=== PATIENT | male | born 1965 | race Caucasian/White ===

== ENCOUNTER 2017-10-19 17:14 | Inpatient (IN) | payer OTHER ==
[~2017-10-19] VITALS: Ht 177.8 cm; Wt 117.9 kg
[2017-10-19 17:15] VITALS: BP 220/145
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
[2017-10-19 18:08] LABS: BASOPHILS # (AUTO) 0.2 K/uL (0.00-0.22); EOSINOPHILS # (AUTO) 0.2 K/uL (0-0.4); HEMATOCRIT 49.4 % (36-52); HEMOGLOBIN 17.1 g/dL (12.0-18.0); LYMPHOCYTES # (AUTO) 1.4 K/uL (2.0-11.5); MEAN CORPUSCULAR HEMOGLOBIN 29 pg (27-31); MEAN CORPUSCULAR HGB CONC 35 g/dL (33-37); MEAN CORPUSCULAR VOLUME 84 fL (80-94); MONOCYTES # (AUTO) 0.7 K/uL (0.8-1.0); NEUTROPHILS # (AUTO) 4.7 K/uL (1.8-7.7); PLATELET COUNT (AUTO) 270 K/uL (140-450); RED CELL DISTRIBUTION WIDTH 12.8 % (11.6-13.7); WHITE BLOOD COUNT (AUTO) 7.2 K/uL (4.8-10.8)
[2017-10-19 18:21] LABS: UREA NITROGEN, BLOOD 12 mg/dL (7-18)
[2017-10-19 18:31] LABS: ALBUMIN 3.9 g/dL (3.4-5.0); ANION GAP 12.8 (8-16); ASPARTATE AMINOTRANSFERASE 19 U/L (15-37); CARBON DIOXIDE 29.3 mmol/L (21-32); CHLORIDE 103 mmol/L (98-107); CREATININE 1.1 mg/dL (0.7-1.3); GFR ARICAN-AMERICAN 92 mL/min (>90); GLUCOSE 116 mg/dL (74-106); POTASSIUM 3.1 mmol/L (3.5-5.1); SALICYLATE < 2.8 mg/dL (2.8-20.0); SODIUM SERUM 142 mmol/L (136-145); TOTAL BILIRUBIN 1.4 mg/dL (0.0-1.0)
[2017-10-19 18:32] LABS: ACETAMINOPHEN < 0.5 ug/ml (10-30)
--- NOTE | 2017-10-19 18:34 | NUR ---
CRECHECKED BP 3 X ;OBTAINE 173/113;ERMD NOTIFIED;WILL PRESCRIBE ENALAPRIL;WILL CONTINUE TO MONITOR PT.
[2017-10-19] MEDS ORDERED: ENALAPRIL 5 MG TAB PO ONE (18:35)
[2017-10-19 18:51] LABS: APPEARANCE,URINE CLEAR (CLEAR); BILIRUBIN,URINE NEGATIVE (NEGATIVE); BLOOD, URINE NEGATIVE (NEGATIVE); COLOR,URINE YELLOW (YELLOW); LEUKOCYTE ESTERASE ,URINE NEGATIVE (NEGATIVE); NITRITE, URINE NEGATIVE (NEGATIVE); PH,URINE 6.5 (5.0-9.0); UGLUCOSE NEGATIVE (NEGATIVE)
[2017-10-19 18:54] LABS: RBC,URINE 0-5 (RARE) /HPF (0-5); WBC,URINE 0-5 (RARE) /HPF (0-5)
[2017-10-19 19:04] LABS: BARBITURATE, URINE NEG. ng/ml (NEG <=200); BENZODIAZEPINE, URINE NEG. ng/mL (NEG <=200); CANNABINOID, URINE NEG. ng/mL (NEG <=50); COCAINE, URINE NEG. ng/mL (NEG <=300); OPIATE, URINE NEG. ng/mL (NEG <=2000); PHENCYCLIDINE SCREEN,URINE NEG. ng/mL (NEG <=25)
--- NOTE | 2017-10-19 19:10 | NUR ---
REPORT RECEIVED FROM SAURAV LONG
[2017-10-19] MEDS ORDERED: POTASSIUM CHLORIDE 20% 40 MEQ/15 ML UDC PO ONE (19:50)
--- NOTE | 2017-10-19 20:45 | NUR ---
AT BEDSIDE, INTERACTING WITH PATIENT APPROPRIATELY.
--- NOTE | 2017-10-19 21:15 | NUR ---
PT EATING DINNER.
--- NOTE | 2017-10-19 22:35 | NUR ---
Patient appears to be resting comfortably in bed. Vital Signs within normal limits. Respirations even and unlabored.
--- NOTE | 2017-10-19 23:30 | NUR ---
PT SLEEPING. NO ACUTE DISTRESS NOTED AT THIS TIME.
--- NOTE | 2017-10-20 01:03 | NUR ---
Patient appears to be resting comfortably in bed. Vital Signs within normal limits. Respirations even and unlabored.
[2017-10-20] MEDS ORDERED: cloNIDine 0.1 MG TAB PO ONE (01:55)
[2017-10-20] MEDS ORDERED: HYDROcodone/APAP 5/325 MG 1 TAB TAB PO ONE (02:00)
[2017-10-20] MEDS ORDERED: ONDANSETRON 4 MG/2 ML VIAL IVP ONE (02:00)
[2017-10-20] MEDS ORDERED: ACETAMINOPHEN 325 MG TAB PO ONE (02:00)
[2017-10-20] MEDS ORDERED: LORazepam 1 MG TAB PO ONE (02:00)
--- NOTE | 2017-10-20 02:33 | NUR ---
Patient will be admitted to care of DR LEMOS. Admited to TELE. Will go to room 112B. Belongings list completed. Report to SAURAV MCGRATH.
[2017-10-20 02:35] VITALS: BP 164/100
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
[2017-10-20] MEDS ORDERED: HYDROcodone/APAP 5/325 MG 1 TAB TAB PO PRN (03:00)
[2017-10-20] MEDS ORDERED: ACETAMINOPHEN 325 MG TAB PO PRN (03:00)
[2017-10-20] MEDS ORDERED: LORazepam 1 MG TAB PO PRN (03:00)
[2017-10-20] MEDS ORDERED: ONDANSETRON 4 MG/2 ML VIAL IVP PRN (03:00)
[2017-10-20] MEDS: cloNIDine 0.1 MG TAB PO PRN ×2 (03:31→12:14)
--- NOTE | 2017-10-20 03:31 | NUR ---
BLOOD PRESSURE 164/100, ADMINISTERED CATAPRES 0.1MG PO WITH EDUCATION, PT VERBALIZED UNDERSTANDING, TOLERATED MED WELL. PT WENT TO THE RESTROOM. ALL NEEDS MET. 1:1 SITTER WITH CLOSE MONITORING AT BEDSIDE. SAFETY MEASURES ENSURED.
[2017-10-20 05:01] VITALS: BP 134/96
[2017-10-20 06:26] LABS: ANION GAP 13.5 (8-16); CARBON DIOXIDE 27.8 mmol/L (21-32); CREATININE 0.9 mg/dL (0.7-1.3); POTASSIUM 3.3 mmol/L (3.5-5.1)
--- NOTE | 2017-10-20 07:15 | NUR ---
ENDORSED PLAN OF CARE TO AM NURSE. CONDITION STABLE
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
[2017-10-20 08:00] VITALS: BP 156/97
[2017-10-20] MEDS: NIFEdipine 30 MG TABER PO SCH (08:27)
--- NOTE | 2017-10-20 08:28 | NUR ---
PATIENT LYING IN BED SLEEPING, AROUSABLE BY VOICE. NO DISTRESS NOTED. SCHEDULED MEDICATIONS DUE GIVEN. SAFETY MEASURES IN PLACE, CALL LIGHT WITHIN REACH, 1:1 SITTER AT BEDSIDE. WILL CONTINUE TO MONITOR.
[2017-10-20] MEDS ORDERED: NIFEdipine 30 MG TABER PO ONE (09:00)
--- NOTE | 2017-10-20 09:20 | NUR ---
PATIENT LYING DOWN IN BED SLEEPING, AROUSABLE BY VOICE. NO DISTRESS NOTED. DENIES ANY PAIN. SAFETY MEASURES IN PLACE, 1:1 SITTER AT BEDSIDE. WILL CONTINUE TO MONITOR.
--- NOTE | 2017-10-20 10:40 | NUR ---
PATIENT SLEEPING, AROUSABLE BY VOICE. NO DISTRESS NOTED. DENIES ANY PAIN. WILL CONTINUE TO MONITOR.
[2017-10-20 12:00] VITALS: BP 175/110
[2017-10-20] MEDS: POTASSIUM CHLORIDE 10 MEQ TABER PO SCH ×2 (12:13→20:26)
--- NOTE | 2017-10-20 12:15 | NUR ---
PATIENT SITTING IN BED WITH LUNCH TRAY IN FRONT. NO DISTRESS NOTED. DENIES ANY PAIN. DENIES ANY THOUGHTS OF HARMING SELF. SCHEDULED MEDICATIONS DUE GIVEN. SAFETY MEASURES IN PLACE, 1:1 SITTER AT BEDSIDE. WILL CONTINUE TO MONITOR.
--- NOTE | 2017-10-20 13:25 | NUR ---
PATIENT LYING IN BED SLEEPING, AROUSABLE BY VOICE. NO DISTRESS NOTED. DENIES ANY PAIN AT THIS TIME. CONDITION UNCHANGED. SAFETY MEASURES IN PLACE, 1:1 SITTER AT BEDSIDE. WILL CONTINUE TO MONITOR.
--- NOTE | 2017-10-20 15:30 | NUR ---
PATIENT LYING IN BED SLEEPING, AROUSABLE BY VOICE. NO DISTRESS NOTED. DENIES ANY PAIN. DENIES ANY THOUGHTS OF HARMING SELF. SAFETY MEASURES IN PLACE, 1:1 SITTER AT BEDSIDE. WILL CONTINUE TO MONITOR.
--- NOTE | 2017-10-20 18:30 | NUR ---
DR LEMOS AT BEDSIDE REVIEWING PLAN OF CARE WITH PATIENT. AWAITING PSYCH MD TO VISIT PATIENT FOR 5150 HOLD. NO DISTRESS NOTED. DENIES ANY PAIN AT THIS TIME. SAFETY MEASURES IN PLACE, 1:1 SITTER AT BEDSIDE. WILL CONTINUE TO MONITOR.
--- NOTE | 2017-10-20 19:25 | NUR ---
GAVE REPORT TO DIETETIC TECHNICIAN NURSE FOR CONTINUITY OF CARE. PATIENT IN STABLE CONDITION.
--- NOTE | 2017-10-20 19:30 | NUR ---
RECEIVED REPORT FROM AM NURSE. PT FAMILY AT BEDSIDE. AOX4, AMBULATORY, ABLE TO VERBALIZE NEEDS. 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 PT DENIES CP, SOB, OR S/S OF ACUTE DISTRESS. RESPIRATIONS EVEN AND UNLABORED. 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 PT REPORTS TOLERABLE PAIN, DENIES PAIN MEDICATION. IV ACCESS ASYMPTOMATIC, PATENT AND INTACT. SALINE LOCKED. DISCUSSED PLAN OF CARE WITH PT, PT VERBALIZED UNDERSTANDING. ALL NEEDS MET. 1:1 SITTER WITH CLOSE MONITORING AT BEDSIDE. ENVIRONMENT CHECKED, SAFETY MEASURES ENSURED.
[2017-10-20 20:00] VITALS: BP 156/100
--- NOTE | 2017-10-20 20:27 | NUR ---
PT BACK FOR CT SCANS OF ABD AND HEAD. ADMINISTERED K-DONN ORDERED WITH EDUCATION. PT VERBALIZED UNDERSTANDING, TOLERATED MEDS WELL. DR LOPEZ AT BEDSIDE TO SEE PT.
--- NOTE | 2017-10-20 20:45 | NUR ---
SPOKE WITH DR LOPEZ, WAS MADE AWARE THAT PT'S 5150 HOLD IS CLEARED, PT WAS PROVIDED REFERRALS FOR COUNSELING CAN BE DISCHARGED BY PSYCH CONSULT. PT ASKED IF HE CAN BE DISCHARGED TONIGHT, MADE PT AWARE THAT THERE ARE STILL NEEDS TO BE CLEARED FOR DISCHARGE BY ATTENDING MD. WILL NEED TO STAY OVERNIGHT FOR LAB TESTS IN THE MORNING AND MD TO REVIEW CT AND LABS. PT VERBALIZED UNDERSTANDING.
--- NOTE | 2017-10-20 22:00 | NUR ---
PT MOVED TO BED 110B, PT ORIENTED TO BED, CALL LIGHT AND ENVIRONMENT. PT VERBALIZED UNDERSTANDING.
[2017-10-21] VITALS: BP 154/98
--- NOTE | 2017-10-21 07:25 | NUR ---
ENDORSED PLAN OF CARE TO AM NURSE. CONDITION STABLE.
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
[2017-10-21 08:00] VITALS: BP 129/73
--- NOTE | 2017-10-21 09:05 | NUR ---
PATIENT HAS BEEN SCREENED AND CATEGORIZED LOW NUTRITION RISK. PATIENT WILL BE SEEN WITHIN 7 DAYS OF ADMISSION. 10/26/[address]
[2017-10-21] MEDS: NIFEdipine 30 MG TABER PO SCH (09:41)
[2017-10-21] MEDS ORDERED: ADA30 PO (09:48)
[2017-10-21 10:48] LABS: ALBUMIN 3.7 g/dL (3.4-5.0); ANION GAP 13.4 (8-16); CARBON DIOXIDE 29.1 mmol/L (21-32); CREATININE 0.9 mg/dL (0.7-1.3); POTASSIUM 3.5 mmol/L (3.5-5.1)
--- NOTE | 2017-10-21 11:30 | NUR ---
PT D/C TO GO HOME. GAVE D/C FORMS, INSTRUCTIONS, LABS, RX, AND FOLLOW UP APPOINTMENT. PT VERBALIZED UNDERSTANDING AND SIGNED FORMS. REMOVED IV FROM R HAND 20G. IV CATHETER TIP INTACT. APPLIED DRESSING AND PRESSURE TO SITE. NO BLEEDING NOTED. REMOVED ID BAND. PT CHANGED IN OWN CLOTHES AND LEFT WITH ALL PERSONAL BELONGINGS. PT LEFT IN STABLE CONDITION. ACCOMPANIED BY AND ARCHIVES SPECIALIST. LEFT VIA AMBULATION.
--- NOTE | 2017-10-21 12:09 | NUR ---
CM NOTE INITIAL REVIEW FAXED TO [facility] [phone] [place] # [phone]
[2017-10-25 08:31] LABS: ALDOSTERONE SERUM 17.5 ng/dL (0.0-30.0)
== END 2017-10-21 11:30 | disposition home or self-care (01) | DRG 199 ==
LOC: MED 17:14 → MTU 10-20 02:06 → OBSVTOIN 10-20 10:01 → MTU 10-20 22:18
PROVIDERS: ADMIT Hospitalist; ATTEND Hospitalist
PROC: 3E0234Z Introduction of Serum, Toxoid and Vaccine into Muscle, Percutaneous Approach (ICD-10-PCS; principal; 2017-10-20)
DX: I16.0 Hypertensive urgency (principal); R45.851 Suicidal ideations; S01.01XA Laceration without foreign body of scalp, initial encounter; E87.6 Hypokalemia; E26.9 Hyperaldosteronism, unspecified; F43.21 Adjustment disorder with depressed mood; Y32.XXXA Crashing of motor vehicle, undetermined intent, initial encounter; Y93.89 Activity, other specified; Y92.89 Other specified places as the place of occurrence of the external cause; Y99.8 Other external cause status; Z23 Encounter for immunization
CPT/HCPCS: 90471; 99285; G0378; 36415; 70450; 74150; 80048; 80053; 80305; 81001; 82088; 83735; 83835; 85025; 87081; 90715; G0480; G0482

== ENCOUNTER 2020-11-19 17:39 | Emergency (ER) | payer OTHER ==
[~2020-11-19] VITALS: Ht 180.3 cm; Wt 117.9 kg
[~2020-11-19 17:39] MED LIST: NIFE-184 PO
[2020-11-19 17:49] VITALS: BP 175/116
[2020-11-19 19:47] VITALS: BP 163/103
== END 2020-11-19 19:47 | disposition home or self-care (01) ==
LOC: MED 17:39
DX: S20.219A Contusion of unspecified front wall of thorax, initial encounter (principal); Z79.899 Other long term (current) drug therapy; V49.9XXA Car occupant (driver) (passenger) injured in unspecified traffic accident, initial encounter; Y93.89 Activity, other specified; Y92.89 Other specified places as the place of occurrence of the external cause; Y99.8 Other external cause status
CPT/HCPCS: 71045; 93005; 99283